=== PATIENT | female | born 1985 | race American Indian/Alaskan Native ===

== ENCOUNTER 2016-11-21 17:40 | Emergency (ER) | payer OTHER ==
[2016-11-21 18:27] VITALS: BP 129/85
--- NOTE | 2016-11-21 20:54 | XRay Report ---
FINAL REPORT EXAM: XR ANKLE 3 RT HISTORY: right ankle pain TECHNIQUE: Three views of the right ankle PRIORS: None. FINDINGS: The bones are normally aligned and mineralized. The joint spaces are well-preserved. There is no evidence of acute fracture. The soft tissues are unremarkable. There is a large Achilles calcaneal spur. IMPRESSION: No evidence of acute fracture or subluxation. Large Achilles calcaneal spur.
--- NOTE | 2016-11-21 21:09 | Emergency Department Report ---
ED Upper Extremity Inj HPI - General Chief Complaint: Fall Stated Complaint: FALL Source: patient Mode of arrival: Ambulatory Limitations: No Limitations - Related Data Home Medications Medication Instructions Recorded Confirmed Last Taken No Known Home Medications [No 11/21/16 11/21/16 Unknown Reported Home Medications] Allergies Allergy/AdvReac Type Severity Reaction Status Date / Time No Known Allergies Allergy Unverified 11/21/16 18:21 ED Review of Systems ROS: Stated complaint: FALL Other details as noted in HPI ED Past Medical Hx - Past Medical History Previous Medical History?: No Additional medical history: Right Achilles tendon - Surgical History Past Surgical History?: No - Social History Smoking Status: Never Smoker Substance Use Type: Alcohol - Medications Home Medications: Home Medications Medication Instructions Recorded Confirmed Last Taken Type No Known Home Medications [No 11/21/16 11/21/16 Unknown History Reported Home Medications] ED Physical Exam - General Limitations: No Limitations ED Course Vital Signs 11/21/16 18:21 Temperature 98.6 F Pulse Rate 77 Blood Pressure 129/85 O2 Sat by Pulse 99 Oximetry ED Medical Decision Making - Radiology Data Radiology results: report reviewed, image reviewed FINDINGS: The bones are normally aligned and mineralized. The joint spaces are well-preserved. There is no evidence of acute fracture. The soft tissues are unremarkable. There is a large Achilles calcaneal spur. IMPRESSION: No evidence of acute fracture or subluxation. Large Achilles calcaneal spur. Transcribed By: TARAH Dictated By: MANAS PATEL MD Electronically Authenticated By: MANAS PATEL MD Signed Date/Time: 11/21/162049 Critical care attestation.: If time is entered above; I have spent that time in minutes in the direct care of this critically ill patient, excluding procedure time. ED Disposition Condition: Stable Referrals: PRIMARY CARE, [Primary Care Provider] - 3-5 Days
[2016-11-21] MEDS ORDERED: NORCO 7.5/325 PO ONE (21:11)
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
== END 2016-11-21 22:13 | disposition home or self-care (01) ==
LOC: ED 17:40
DX: S93.401A Sprain of unspecified ligament of right ankle, initial encounter (principal); M77.31 Calcaneal spur, right foot; W19.XXXA Unspecified fall, initial encounter; Y93.02 Activity, running; Y99.9 Unspecified external cause status; Y92.89 Other specified places as the place of occurrence of the external cause

== ENCOUNTER 2017-12-17 10:09 | Emergency (ER) | payer OTHER ==
--- NOTE | 2017-12-17 13:50 | Emergency Department Report ---
ED Female HPI - General Chief complaint: Urogenital-Female Stated complaint: CUT ON GENETELIA AREA Time Seen by Provider: 12/17/17 13:11 Source: patient, family Mode of arrival: Ambulatory Limitations: No Limitations - History of Present Illness Initial comments: Patient here report that she was washing her genital area this morning and she fingernail cut her vagina on the outside. She says she has a small amount of bleeding in and she was concerned. Patient with false fingernail and said that this happened at 9 AM. Tetanus vaccine is greater than 5 years. Pain is 5 out of 10 only to touch and with movement. Denies any internal vaginal bleeding. Denies any urinary burning frequency or urgency. Bleed and has stopped since initial incident this morning. Pain is burning pain at site. Pain localized to injured area. Denies any rectal bleeding. Denies any abdominal pain or vaginal discharge. Denies any concern for STDs. Denies any fever or chills. MD Complaint: other (cut to external vaginal area) -: This morning Location: labia Radiation: non-radiating Severity: moderate Severity scale (0 -10): 5 Quality: burning Consistency: intermittent Improves with: other (rest) Worsens with: movement, other (touch) Are you Now?: No Associated Symptoms: denies: vaginal discharge, vaginal bleeding, abdominal pain , nausea/vomiting, fever/chills, headaches, loss of appetite, dysuria, hematuria , rash, seizure, shortness of breath, syncope, weakness - Related Data Sexually active: No Previous Rx's Medication Instructions Recorded Last Taken Type Cephalexin [Keflex] 500 mg PO Q8HR 7 Days #21 cap 12/17/17 Unknown Rx Ibuprofen [Motrin 800 MG tab] 800 mg PO Q8HR PRN #12 tablet 12/17/17 Unknown Rx Allergies Allergy/AdvReac Type Severity Reaction Status Date / Time No Known Allergies Allergy Verified 12/17/17 10:16 ED Review of Systems ROS: Stated complaint: CUT ON GENETELIA AREA Other details as noted in HPI Comment: All other systems reviewed and negative Constitutional: no symptoms reported Respiratory: no symptoms reported Cardiovascular: denies: chest pain, palpitations, edema, syncope Gastrointestinal: denies: abdominal pain, nausea, vomiting, diarrhea, constipation, hematemesis, melena, hematochezia Genitourinary: other (patient reports laceration to external vaginal area). denies: urgency, dysuria, frequency, hematuria, discharge, dyspareunia Musculoskeletal: denies: back pain, joint swelling, arthralgia, myalgia Skin: other (laceration external vaginal area) Neurological: denies: headache ED Past Medical Hx - Past Medical History Previous Medical History?: No Hx Seizures: Yes Additional medical history: Right Achilles tendon - Surgical History Past Surgical History?: No - Family History Family history: no significant - Social History Smoking Status: Current Every Day Smoker Substance Use Type: Alcohol - Medications Home Medications: Home Medications Medication Instructions Recorded Confirmed Last Taken Type Cephalexin [Keflex] 500 mg PO Q8HR 7 Days #21 cap 12/17/17 Unknown Rx Ibuprofen [Motrin 800 MG tab] 800 mg PO Q8HR PRN #12 tablet 12/17/17 Unknown Rx ED Physical Exam - General Limitations: No Limitations General appearance: alert, in no apparent distress - Head Head exam: Present: atraumatic, normocephalic, normal inspection - Eye Eye exam: Present: normal appearance, PERRL, EOMI Pupils: Present: normal accommodation - ENT ENT exam: Present: normal exam, normal orophraynx, mucous membranes moist - Neck Neck exam: Present: normal inspection, full ROM. Absent: tenderness - Respiratory Respiratory exam: Present: normal lung sounds bilaterally. Absent: respiratory distress, chest wall tenderness - Cardiovascular Cardiovascular Exam: Present: regular rate, normal rhythm, normal heart sounds - GI/Abdominal GI/Abdominal exam: Present: soft, normal bowel sounds. Absent: distended, tenderness, guarding, rebound, rigid, organomegaly, mass, bruit, pulsatile mass , hernia - External exam: Present: other (superficial abrasion external vaginal area labia majora, left). Absent: erythema, swelling, lesions, lacerations, ecchymosis, bleeding - Expanded Exam Expanded Female exam: Present: other (vaginal abrasion labia majora left). Absent: vaginal laceration, tissue present in vagina, herpetic lesions, vulvar erythema , vulvar tenderness, foreign body External exam: Present: normal - Extremities Exam Extremities exam: Present: normal inspection, full ROM, normal capillary refill , other (no clubbing, cyanosis or edema. +2 pulses to all extremities and no neurovascular compromise). Absent: tenderness, pedal edema, joint swelling, calf tenderness - Back Exam Back exam: Present: normal inspection, full ROM, other (no clubbing, cyanosis or edema. Positive pulses all extremities). Absent: tenderness, CVA tenderness (R), CVA tenderness (L), muscle spasm, paraspinal tenderness, vertebral tenderness, rash noted - Neurological Exam Neurological exam: Present: alert, oriented X3, normal gait - Psychiatric Psychiatric exam: Present: normal affect, normal mood - Skin Skin exam: Present: warm, dry, normal color, abrasion (external, left labia majora. Very superficial abrasion). Absent: erythema ED Course Vital Signs 12/17/17 10:16 Temperature 98.1 F Pulse Rate 80 Respiratory 18 Rate Blood Pressure 118/51 O2 Sat by Pulse 99 Oximetry - Reevaluation(s) Reevaluation #1: 12/17/17 14:01 Boostrix 0.5 mL given in emergency room. ED Medical Decision Making - Medical Decision Making ED course: Patient injured her labia majora with her fingernail this morning while she was showering. She says she can't emergency room because she noticed some bleeding and she was worried and thinking that it needed to be repaired. Physical findings are very small abrasion to left labia majora. No need for suturing. I discussed this with patient and also discussed with her hygienic care. Boostrix 0.5 mL to update tetanus and patient discharged home with prescription for Keflex and to follow-up with her primary care physician is Dr. Angelo Hugo. She was understanding the discharge instructions and, treatment plan and need to follow up. Critical care attestation.: If time is entered above; I have spent that time in minutes in the direct care of this critically ill patient, excluding procedure time. ED Disposition Clinical Impression: Abrasion of external female genital organs Qualifiers: Encounter type: initial encounter Qualified Code(s): S30.816A - Abrasion of unspecified external genital organs, female, initial encounter Disposition: TO HOME OR SELFCARE Is pt being admited?: No Does the pt Need Aspirin: No Condition: Stable Instructions: Abrasion (ED) Additional Instructions: Please keep affected area clean and dry as instructed Take Keflex to prevent infection Follow up primary care, Dr. Angelo Hugo in 3-5 days. Prescriptions: Cephalexin [Keflex] 500 mg PO Q8HR 7 Days #21 cap Ibuprofen [Motrin 800 MG tab] 800 mg PO Q8HR PRN #12 tablet PRN Reason: Pain Referrals: ANGELO HUGO MD [Staff Physician] - 3-5 Days Forms: Work/School Release Form(ED)
[2017-12-17] MEDS ORDERED: BOOSTRIX IM ONE (14:25)
[2017-12-17 15:01] VITALS: BP 135/84
== END 2017-12-17 14:50 | disposition home or self-care (01) ==
LOC: ED 10:09
DX: S30.816A Abrasion of unspecified external genital organs, female, initial encounter (principal); F17.200 Nicotine dependence, unspecified, uncomplicated; W45.0XXA Nail entering through skin, initial encounter; Y93.89 Activity, other specified; Y92.89 Other specified places as the place of occurrence of the external cause; Y99.8 Other external cause status
CPT/HCPCS: 90471; 90715; 99282